=== PATIENT | female | born 1955 | race Caucasian/White ===

== ENCOUNTER 2016-07-22 14:49 | Emergency (ER) | payer OTHER ==
[~2016-07-22] VITALS: Wt 59.0 kg
[2016-07-22] MEDS ORDERED: PANTOPRAZOLE 40 MG INJ IV ONE (19:00)
[2016-07-22 19:17] LABS: ADD SCAN DIFF NO
--- NOTE | 2016-07-22 19:21 | RADRPT ---
PROCEDURE: XR Chest. CLINICAL INDICATION: Chest pain TECHNIQUE: A single portable view of the chest was obtained. COMPARISON: None FINDINGS: The cardiomediastinal silhouette is within normal limits. The lungs and pleural spaces are clear. The soft tissues and osseous structures are unremarkable. IMPRESSION: No acute cardiopulmonary disease. RPTAT: HPNM Physician Joanie Date Time Electronically viewed and signed by Yao Card Physician on 07/22/2016 19:21 /
[2016-07-22 19:22] LABS: BASOPHIL # 0.1 10^3/ul (0.0-0.1); BASOPHILS % 0.5 % (0.0-2.0); EOSINOPHILS # 0.2 10^3/ul (0.0-0.5); EOSINOPHILS % 2.1 % (0.0-7.0); HEMATOCRIT 45.3 % (37.0-47.0); HEMOGLOBIN 14.8 g/dl (12.0-16.0); LYMPHOCYTES # 3.8 10^3/ul (0.8-2.9); LYMPHOCYTES % 34.3 % (15.0-51.0); MEAN CORPUSCULAR HEMOGLOBIN 30.2 pg (29.0-33.0); MEAN CORPUSCULAR HGB CONC 32.7 g/dl (32.0-37.0); MEAN CORPUSCULAR VOLUME 92.4 fl (82.0-101.0); MEAN PLATELET VOLUME 12.2 fl (7.4-10.4); MONOCYTE # 0.6 10^3/ul (0.3-0.9); MONOCYTES % 5.8 % (0.0-11.0); NEUTROPHIL # 6.2 10^3/ul (1.6-7.5); NEUTROPHILS % 56.9 % (39.0-77.0); PLATELET COUNT 202 10^3/UL (140-415); RED CELL DISTRIBUTION WIDTH 12.9 % (11.5-14.5); WHITE BLOOD COUNT 10.9 10^3/ul (4.8-10.8)
[2016-07-22 19:31] LABS: ALBUMIN 4.5 g/dl (3.3-4.9); INR 0.88; PROTIME 11.9 Sec (12.2-14.2); PT RATIO 0.9
[2016-07-22 19:32] LABS: PARTIAL THROMBOPLASTIN TIME 22.4 Sec (25.0-35.0); POTASSIUM 4.9 mmol/L (3.5-5.1)
[2016-07-22 19:34] LABS: ALBUMIN/GLOBULIN RATIO 1.18; BILIRUBIN,INDIRECT 0.3 mg/dl (0-1.1); BILIRUBIN,TOTAL 0.3 mg/dl (0.2-1.3); CREATININE 0.47 mg/dl (0.44-1.00); TOTAL PROTEIN 8.3 g/dl (6.1-8.1)
[2016-07-22 19:35] LABS: CALCIUM 9.9 mg/dl (8.4-10.2)
[2016-07-22 19:46] LABS: TROPONIN-I 0.011 ng/ml (0.00-0.12)
--- NOTE | 2016-07-22 21:21 | RADRPT ---
PROCEDURE: US Abdomen. CLINICAL INDICATION: abdominal pain TECHNIQUE: Multiple real-time images were acquired of the patient's right upper quadrant abdomen a nd retroperitoneum utilizing a high resolution transducer. COMPARISON: None FINDINGS: The liver demonstrates normal echogenicity. The liver is normal in size and no focal solid lesions are seen. The liver measures 15 cm in length. The portal vein is patent with normal direction of lena w. No intrahepatic biliary dilatation is seen. No gallstones are identified within the gallbladder. There is no pericholecystic fluid or gallbladd er wall thickening. The common bile duct measures 3 mm in maximal dimension. The visualized portions of the pancreas are unremarkable. The tail of the pancreas is not seen. No free fluid is identified. The right kidney is normal in size, and demonstrate normal echogenicity and cortical thickness. The right kidney measures 9.2 cm in long dimension. There is no evidence of hydronephrosis. There are no kidney stones. RPTAT: AA IMPRESSION: Unremarkable right upper quadrant abdominal ultrasound. .Mykel Vidales MD, MD Date Time Electronically viewed and signed by .Mykel Vidales MD, on 07/22/2016 21:21 .S/
--- NOTE | 2016-07-22 22:05 | ERD ---
ER Documentation Chief Complaint Date/Time DATE: 07/22/16 TIME: 22:04 Chief Complaint CP WITH VOMITING AND MILD SOB SINCE 3 DAYS. NO DIAPHORESIS HPI 61-year-old female with history of insulin-dependent diabetes mellitus type 2 complaining of burning, moderate, nonradiating, epigastric and substernal chest pain intermittently since June 27 but continuously for the last 2 weeks. Pain seems to be worse at night and sometimes wakes her from sleep with shortness of breath and nausea but denies vomiting, hematemesis or hematochezia. Pain is not related to exertion or relieved by rest. Occasionally she feels worse after eating but symptoms resolved with vomiting. No leg pain or swelling. No URI symptoms or cough. No other relieving or exacerbating factors. No fevers or chills. She was evaluated at [facility] 1 week ago and diagnosed with gastritis. ROS All systems reviewed and are negative except as per history of present illness. Medications Home Meds Active Scripts Pantoprazole* (Protonix*) 40 Mg Tablet., 40 MG PO DAILY, #20 TAB Prov:YULISSA ROCHA MD 07/22/16 PMhx/Soc History of Surgery: No Anesthesia Reaction: No Hx Neurological Disorder: No Hx Respiratory Disorders: No Hx Cardiac Disorders: No Hx Psychiatric Problems: No Hx Miscellaneous Medical Probl: Yes (DM) Hx Alcohol Use: No Hx Substance Use: No Hx Tobacco Use: No Smoking Status: Never smoker FmHx Family history of diabetes but no coronary artery disease, stroke, cancer or sudden cardiac . Physical Exam Vitals Vital Signs Date Time Temp Pulse Resp B/P Pulse Ox O2 Delivery O2 Flow Rate FiO2 07/22/16 21:05 76 16 130/83 98 Room Air 07/22/16 14:51 98.6 112 21 148/70 98 Physical Exam Const: Alert, no acute distress Head: Atraumatic Eyes: Normal Conjunctiva ENT: Normal External Ears, Nose and Mouth. Neck: Full range of motion. Nontender. No JVD. Resp: Clear to auscultation bilaterally Cardio: Regular rate and rhythm, no murmurs. No chest wall tenderness. Abd: Soft, mild epigastric tenderness, non distended. Normal bowel sounds Skin: No petechiae or rashes Back: No midline or flank tenderness Ext: No cyanosis, or edema no calf swelling or tenderness. Pulses 4+ in all extremities. Neur: Awake and alert. No focal deficit observed. Psych: Normal Mood and Affect Result Diagram: 07/22/16185407/22/161854 Results 24 hrs Laboratory Tests Test 07/22/16 18:55 Activated Partial Thromboplast Time 22.4Sec Alanine Aminotransferase (ALT/SGPT) 16IU/L Albumin 4.5g/dl Albumin/Globulin Ratio 1.18 Alkaline Phosphatase 134IU/L Anion Gap 20 Aspartate Amino Transf (AST/SGOT) 42IU/L Basophils # 0.110^3/ul Basophils % 0.5% Blood Urea Nitrogen 17mg/dl Calcium Level 9.9mg/dl Carbon Dioxide Level 26mmol/L Chloride Level 101mmol/L Creatinine 0.47mg/dl Direct Bilirubin 0.00mg/dl Eosinophils # 0.210^3/ul Eosinophils % 2.1% Globulin 3.80g/dl Glucose Level 189mg/dl Hematocrit 45.3% Hemoglobin 14.8g/dl INR International Normalized Ratio 0.88 Indirect Bilirubin 0.3mg/dl Lipase 57U/L Lymphocytes # 3.810^3/ul Lymphocytes % 34.3% Mean Corpuscular Hemoglobin 30.2pg Mean Corpuscular Hemoglobin Concent 32.7g/dl Mean Corpuscular Volume 92.4fl Mean Platelet Volume 12.2fl Monocytes # 0.610^3/ul Monocytes % 5.8% Neutrophils # 6.210^3/ul Neutrophils % 56.9% Nucleated Red Blood Cells # 0.010^3/ul Nucleated Red Blood Cells % 0.0/100WBC Platelet Count 56679^3/UL Potassium Level 4.9mmol/L Prothrombin Time 11.9Sec Prothrombin Time Ratio 0.9 Red Blood Count 4.9010^6/ul Red Cell Distribution Width 12.9% Sodium Level 142mmol/L Total Bilirubin 0.3mg/dl Total Protein 8.3g/dl Troponin I 0.011ng/ml White Blood Count 10.910^3/ul Current Medications Medications (Trade) Dose Ordered Sig/Elly Route PRN Reason Start Time Stop Time Status Last Admin Dose Admin Pantoprazole (Protonix Iv) 40 mg ONCE ONCE IV 07/22/16 19:00 07/22/16 19:01 DC 07/22/16 19:36 EKG: TIME: 14:58. Sinus rhythm. Ventricular 105. Normal ID and QRS. Left axis deviation. Right ventricular conduction delay. Septal Q waves. No acute ST segment elevation or depression. EP Interpretation: Abnormal EKG. EKG: TIME: 22:53 Sinus rhythm. Ventricular 89. Normal ID and QRS. Left axis deviation. Right ventricular conduction delay. Septal Q waves. No acute ST segment elevation or depression. EP Interpretation: Abnormal EKG. IMAGING: ROCEDURE: XR Chest. CLINICAL INDICATION: Chest pain TECHNIQUE: A single portable view of the chest was obtained. COMPARISON: None FINDINGS: The cardiomediastinal silhouette is within normal limits. The lungs and pleural spaces are clear. The soft tissues and osseous structures are unremarkable. IMPRESSION: No acute cardiopulmonary disease. RPTAT: HPNM Physician Joanie Date Time Electronically viewed and signed by Physician Joanie on 07/22/2016 19 :21 / PROCEDURE: US Abdomen. CLINICAL INDICATION: abdominal pain TECHNIQUE: Multiple real-time images were acquired of the patient's right upper quadrant abdomen and retroperitoneum utilizing a high resolution transducer. COMPARISON: None FINDINGS: The liver demonstrates normal echogenicity. The liver is normal in size and no focal solid lesions are seen. The liver measures 15 cm in length. The portal vein is patent with normal direction of flow. No intrahepatic biliary dilatation is seen. No gallstones are identified within the gallbladder. There is no pericholecystic fluid or gallbladder wall thickening. The common bile duct measures 3 mm in maximal dimension. The visualized portions of the pancreas are unremarkable. The tail of the pancreas is not seen. No free fluid is identified. The right kidney is normal in size, and demonstrate normal echogenicity and cortical thickness. The right kidney measures 9.2 cm in long dimension. There is no evidence of hydronephrosis. There are no kidney stones. RPTAT: AA IMPRESSION: Unremarkable right upper quadrant abdominal ultrasound. .Mykel Vidales MD, MD Date Time Electronically viewed and signed by .Mykel Vidales MD, on 07/22/2016 21: 21 .S/ Procedures/MDM DOCUMENTS REVIEWED: ED nurse, prior ED, prior records REEXAMINATION/REEVALUATION: Time: 23:00. Doing well. Asymptomatic. MEDICAL DECISION MAKIN-year-old female with history of insulin-dependent diabetes mellitus type 2 complaining of burning, moderate, nonradiating, epigastric and substernal chest pain intermittently since June 27 but continuously for the last 2 weeks. No acute EKG ischemic changes are elevated troponin. Radiographic evidence of pneumonia or pneumothorax. Low risk for pulmonary embolism. No signs of aortic dissection. Possible gastritis/GERD although a cardiac etiology including ACS cannot be ruled out. EDWAR score of 1. Low risk for an acute event especially considering how long the pain has been ongoing. Stable for discharge with precautionary instructions and urgent outpatient follow-up within 48-72 hours for further risk stratification. Counseled patient regarding diagnostic workup, diagnosis and need for followup. Understands to return to ED if symptoms recur, worsen or any other concerns. Departure Diagnosis: Primary Impression: Chest pain of unknown etiology Additional Impression: Diabetes mellitus type 2 in nonobese Condition: YULISSA Pichardo MD Jul 22, 2016 22:05
[2016-07-22] MEDS ORDERED: PANT40TA3 PO (22:39)
[2016-07-22 23:58] VITALS: BP 150/100; PULSE 91; RESP 16
== END 2016-07-22 23:59 | disposition home or self-care (01) ==
LOC: E/R 14:49
DX: R07.2 Precordial pain (principal); E11.9 Type 2 diabetes mellitus without complications; R10.9 Unspecified abdominal pain; Z79.4 Long term (current) use of insulin
CPT/HCPCS: 36415; 71010; 76705; 80053; 83690; 84484; 85025; 85610; 85730; 93005; 96374; Z7502

== ENCOUNTER 2016-09-11 07:07 | Inpatient (IN) | payer OTHER ==
[~2016-09-11] VITALS: Ht 160 cm; Wt 62.9 kg
[~2016-09-11 07:07] MED LIST: PANT40TA3 PO
[2016-09-11] MEDS ORDERED: CEFTRIAXONE 1 GM/50 ML (PMX) 50 ML IVPB STA (07:22)
[2016-09-11] MEDS ORDERED: SODIUM CHLORIDE 0.9% 1L BAG IV* STA (07:22)
[2016-09-11] MEDS ORDERED: KETOROLAC 15 MG INJ IV STA (07:30)
[2016-09-11] MEDS ORDERED: SS SC (08:03)
[2016-09-11] MEDS: AZITHROMYCIN 500MG/NS (PMX) 250 ML IV STA ×2 (08:14→08:51)
[2016-09-11 08:16] LABS: ADD SCAN DIFF NO
[2016-09-11 08:31] LABS: BASOPHIL # 0.1 10^3/ul (0.0-0.1); BASOPHILS % 0.3 % (0.0-2.0); CHLORIDE 98 mmol/L (97-110); EOSINOPHILS % 0.1 % (0.0-7.0); HEMATOCRIT 38.8 % (37.0-47.0); HEMOGLOBIN 13.5 g/dl (12.0-16.0); LYMPHOCYTES # 1.1 10^3/ul (0.8-2.9); LYMPHOCYTES % 6.2 % (15.0-51.0); MEAN CORPUSCULAR HEMOGLOBIN 31.3 pg (29.0-33.0); MEAN CORPUSCULAR HGB CONC 34.8 g/dl (32.0-37.0); MEAN PLATELET VOLUME 10.5 fl (7.4-10.4); MONOCYTES % 5.5 % (0.0-11.0); NEUTROPHIL # 15.9 10^3/ul (1.6-7.5); NEUTROPHILS % 87.4 % (39.0-77.0); PLATELET COUNT 245 10^3/UL (140-415); RED BLOOD COUNT 4.31 10^6/ul (4.20-5.40); RED CELL DISTRIBUTION WIDTH 12.1 % (11.5-14.5); SODIUM 136 mmol/L (135-144); WHITE BLOOD COUNT 18.2 10^3/ul (4.8-10.8)
[2016-09-11 08:32] LABS: POTASSIUM 3.7 mmol/L (3.5-5.1)
[2016-09-11 08:33] LABS: CREATININE 0.56 mg/dl (0.44-1.00)
[2016-09-11 08:34] LABS: ALANINE AMINOTRANSFERASE 20 IU/L (13-69); ALKALINE PHOSPHATASE 116 IU/L (42-121); ANION GAP 18 (8-16); ASPARTATE AMINO TRANSFERASE 31 IU/L (15-46); BILIRUBIN,INDIRECT 1.3 mg/dl (0-1.1); BILIRUBIN,TOTAL 1.3 mg/dl (0.2-1.3); BLOOD UREA NITROGEN 10 mg/dl (7-20); CARBON DIOXIDE 24 mmol/L (21-31); GLUCOSE 299 mg/dl (70-220); INR 1.07; PARTIAL THROMBOPLASTIN TIME 30.9 Sec (25.0-35.0); PROTIME 13.9 Sec (12.2-14.2); PT RATIO 1.1
[2016-09-11 08:46] LABS: TROPONIN-I < 0.012 ng/ml (0.00-0.12)
--- NOTE | 2016-09-11 09:13 | RADRPT ---
PROCEDURE: XR Chest. CLINICAL INDICATION: Sepsis TECHNIQUE: Single frontal chest x-ray. COMPARISON: 07/17/2016 FINDINGS: No acute infiltrate, pleural effusion or pneumothorax is identified. Cardiomediastinal silhouette i s within normal limits. The osseous structures are unremarkable. IMPRESSION: 1. No evidence of acute cardiopulmonary process. RPTAT: EE .Bernabe Flowers MD, MD Date Time Electronically viewed and signed by .Bernabe Flowers MD, on 09/11/2016 09:13 .R/
[2016-09-11 10:14] LABS: ADD UMIC YES; URINE BILIRUBIN (Dip) NEGATIVE (NEGATIVE); URINE BLOOD (Dip) NEGATIVE (NEGATIVE); URINE COLOR LT. YELLOW (YELLOW); URINE KETONES (Dip) 40 (NEGATIVE); URINE LEUKOCYTE ESTERASE (Dip) NEGATIVE (NEGATIVE); URINE NITRITE (Dip) NEGATIVE (NEGATIVE); URINE TOTAL PROTEIN (Dip) TRACE (NEGATIVE); URINE UROBILINOGEN (Dip) 0.2 E.U./dL (0.1-1.0)
[2016-09-11 10:23] LABS: URINE RBCS 0-2 /HPF (0)
[2016-09-11] MEDS ORDERED: ACETAMINOPHEN 325 MG TAB PO PRN ×2 (11:00→17:30)
[2016-09-11] MEDS ORDERED: ONDANSETRON 4 MG INJ IV PRN (11:00)
[2016-09-11 11:14] VITALS: TEMP 99
--- NOTE | 2016-09-11 13:42 | ERA ---
ER Documentation Chief Complaint Date/Time DATE: 09/11/16 TIME: 13:34 Chief Complaint DIZZINESS FEVER AND FLULIKE SYMPTOMS FOR 3 DAYS. NO NEURO DEFICIT NOTED HPI 61-year-old female presenting with 3 days of flulike symptoms, with associated left ear pain and dizziness. She also has associated fevers and productive cough. She denies any vision disturbance, nausea, vomiting, diarrhea, chest pain, or shortness of breath. No associated abdominal pain or dysuria. She complains of decreased hearing in her left ear. No neck stiffness or neck pain. ROS All systems reviewed and are negative except as per history of present illness. Medications Home Meds Reported Medications Insulin Human Regular (Novolin-R U-100) 100 Unit/Ml Soln, 15 UNITS SC BID, EA 09/11/16 Discontinued Scripts Pantoprazole* (Protonix*) 40 Mg Tablet.dr, 40 MG PO DAILY, #20 TAB Prov:YULISSA ROCHA MD 07/22/16 Allergies Allergies: Coded Allergies: Penicillins (Verified Allergy, Unknown, RASH STOMACH ACHE, 09/11/16) PMhx/Soc History of Surgery: No Anesthesia Reaction: No Hx Neurological Disorder: No Hx Respiratory Disorders: No Hx Cardiac Disorders: No Hx Psychiatric Problems: No Hx Miscellaneous Medical Probl: Yes (DM) Hx Alcohol Use: No Hx Substance Use: No Hx Tobacco Use: No Smoking Status: Never smoker FmHx Family History: diabetes Physical Exam Vitals Vital Signs Date Time Temp Pulse Resp B/P Pulse Ox O2 Delivery O2 Flow Rate FiO2 09/11/16 11:14 99.0 100 20 123/77 100 Room Air 09/11/16 09:01 110 22 144/90 95 Room Air 09/11/16 07:11 100.5 135 20 110/84 98 Physical Exam Const: Ill-appearing, nontoxic, mild distress Head: Atraumatic Eyes: Normal Conjunctiva ENT: Left TM bulging with purulence behind TM and erythema. External canal normal. Right ear normal. Posterior oropharynx normal without exudate, swelling or erythema. Neck: Full range of motion. No JVD. No meningismus. Resp: Clear to auscultation bilaterally Cardio: Tachycardic with regular rhythm, no murmurs Abd: Soft, non tender, non distended. Normal bowel sounds Skin: No petechiae or rashes Back: No midline or flank tenderness Ext: No cyanosis, or edema Neur: Awake and alert and oriented 3, cranial nerves intact, strength and sensations intact, able to walk but careful gait due to dizziness Psych: Normal Mood and Affect Result Diagram: 09/11/16 0745 09/11/16 0745 Results 24 hrs Laboratory Tests Test 09/11/16 07:40 09/11/16 07:45 09/11/16 09:40 09/11/16 10:19 Bedside Glucose 272mg/dL White Blood Count 18.210^3/ul Red Blood Count 4.3110^6/ul Hemoglobin 13.5g/dl Hematocrit 38.8% Mean Corpuscular Volume 90.0fl Mean Corpuscular Hemoglobin 31.3pg Mean Corpuscular Hemoglobin Concent 34.8g/dl Red Cell Distribution Width 12.1% Platelet Count 89769^3/UL Mean Platelet Volume 10.5fl Neutrophils % 87.4% Lymphocytes % 6.2% Monocytes % 5.5% Eosinophils % 0.1% Basophils % 0.3% Nucleated Red Blood Cells % 0.0/100WBC Neutrophils # 15.910^3/ul Lymphocytes # 1.110^3/ul Monocytes # 1.010^3/ul Eosinophils # 0.010^3/ul Basophils # 0.110^3/ul Nucleated Red Blood Cells # 0.010^3/ul Prothrombin Time 13.9Sec Prothrombin Time Ratio 1.1 INR International Normalized Ratio 1.07 Activated Partial Thromboplast Time 30.9Sec Sodium Level 136mmol/L Potassium Level 3.7mmol/L Chloride Level 98mmol/L Carbon Dioxide Level 24mmol/L Anion Gap 18 Blood Urea Nitrogen 10mg/dl Creatinine 0.56mg/dl Glucose Level 299mg/dl Lactic Acid Level 1.7mmol/L 1.4mmol/L Calcium Level 9.0mg/dl Total Bilirubin 1.3mg/dl Direct Bilirubin 0.00mg/dl Indirect Bilirubin 1.3mg/dl Aspartate Amino Transf (AST/SGOT) 31IU/L Alanine Aminotransferase (ALT/SGPT) 20IU/L Alkaline Phosphatase 116IU/L Troponin I < 0.012ng/ml Total Protein 8.0g/dl Albumin 4.0g/dl Globulin 4.00g/dl Albumin/Globulin Ratio 1.00 Lipase 40U/L Urine Color LT. YELLOW Urine Clarity CLEAR Urine pH 7.5 Urine Specific [place] 1.015 Urine Ketones 40 Urine Nitrite NEGATIVE Urine Bilirubin NEGATIVE Urine Urobilinogen 0.2 E.U./dL Urine Leukocyte Esterase NEGATIVE Urine Microscopic RBC 0-2/HPF Urine Microscopic WBC NONE SEEN/HPF Urine Epithelial Cells RARE Urine Hemoglobin NEGATIVE Urine Glucose 0.25%% Urine Total Protein TRACE Current Medications Medications (Trade) Dose Ordered Sig/Elly Route PRN Reason Start Time Stop Time Status Last Admin Dose Admin Sodium Chloride 1950 ml 1,950 ml BOLUS OVER 2 HOURS STAT IV* 09/11/16 07:22 09/11/16 07:31 DC 09/11/16 08:13 Ceftriaxone Sodium 50 ml @ 100 mls/hr ONCE STAT IVPB 09/11/16 07:22 09/11/16 07:51 DC 09/11/16 08:13 Azithromycin (Zithromax 500mg/ NS (Pmx)) 250 ml @ 250 mls/hr ONCE STAT IV 09/11/16 07:22 09/11/16 08:21 DC 09/11/16 08:51 Ketorolac Tromethamine (Toradol) 15 mg ONCE STAT IV 09/11/16 07:30 09/11/16 07:31 DC 09/11/16 08:14 Ondansetron HCl (Zofran Inj) 4 mg BRIDGE ORDER PRN IV NAUSEA AND/OR VOMITING 09/11/16 11:00 09/12/16 10:59 Acetaminophen (Tylenol Tab) 650 mg ER BRIDGE PRN PO MILD PAIN/FEVER 09/11/16 11:00 09/12/16 10:59 Procedures/MDM EMERGENT LABS AND DIAGNOSTIC STUDIES: Lab Results above were reviewed and interpreted by me. CBC shows leukocytosis of 18 BMP shows hyperglycemia Trop normal UA without evidence of UTI Lactate normal 12-lead EKG was interpreted by Adrian Deshpande MD: Normal Sinus Rhythm with ventricular rate of 123 beats per minute Left anterior fascicular block Normal intervals No acute ST or T wave changes suggestive of acute ischemia or STEMI. Radiology Results as interpreted by Radiology below were reviewed by Shonda Deshpande MD: Chest x-ray: No evidence of acute cardiopulmonary process Initial Nursing notes reviewed. Previous Medical Records requested via the Electronic Health Record. EMERGENCY DEPARTMENT COURSE / MEDICAL DECISION MAKING: Patient is presenting with evidence of sepsis. She does have flulike symptoms but her flu test is negative. Given her tachycardia, at 30 cc/kg bolus was given with improvement in her vital signs. However her dizziness did not improve. She continues to feel very weak. Her only source of infection right now is an upper respiratory infection with otitis media. I have a very low suspicion for ACS, aortic dissection, meningitis, intracranial abscess, stroke. Chest x-ray does not show evidence of pneumonia. Patient's infectious symptoms have not stabilized and the patient is at risk of decompensation. The patient will be admitted for careful hydration, antibiotic therapy, and infectious source control. Severe Sepsis Assessment: Infectious Source: Left otitis media, upper respiratory infection End organ damage indicated by: Tachycardia Severe Sepsis Managment: Blood Cultures X 2 before broad spectrum antibiotics initiated within 3 hours of recognition. 30 ml/kg NS bolus Completed Initial Lactate: Within normal limits Repeat Lactate normal Critical Care: Time: 35 minutes Treatments/Evaluations: Emergent fluid management, while maintaining close respiratory support. Immediate broad spectrum antibiotic therapy. Simultaneous assessment for possible sources in order to direct therapy. Consideration for invasive and chemical support to prevent respiratory or cardiac collapse. Accepting Care Team: Current data and ongoing care discussed. Time: Time of admission Primary Provider: Ena Consulting: none Outstanding Data: none Departure Diagnosis: Primary Impression: Dizziness Additional Impressions: Sepsis Qualified Code: A41.9 - Sepsis, due to unspecified organism Otitis media, left Qualified Code: H66.002 - Acute suppurative otitis media of left ear without spontaneous rupture of tympanic membrane, recurrence not specified Flu-like symptoms Condition: Serious TAMY DESHPANDE MD Sep 11, 2016 13:42
[2016-09-11 15:30] VITALS: BP 136/72; PULSE 97; RESP 20
[2016-09-11 15:44] VITALS: Ht 160 cm; Wt 62.9 kg
[2016-09-11] MEDS ORDERED: GLUCAGON 1 MG INJ IM PRN (17:30)
[2016-09-11] MEDS ORDERED: GLUCOSE GEL 15 GRAM TUBE PO PRN ×2 (17:30)
[2016-09-11] MEDS ORDERED: IBUPROFEN 600 MG TAB PO PRN (17:30)
[2016-09-11] MEDS ORDERED: DEXTROSE 50% 50 ML SYRINGE IV PRN ×2 (17:30)
[2016-09-11] MEDS ORDERED: GLUCOSE GEL 15 GRAM TUBE BUCCAL PRN (17:30)
[2016-09-11] MEDS: LEVALBUTEROL (NEB) 0.63 MG/3 ML AMP HHN SCH (17:54)
--- NOTE | 2016-09-11 18:04 | HP ---
DATE OF ADMISSION: 09/11/2016 CHIEF COMPLAINT: Cough, chest congestion and left ear pain. HISTORY OF PRESENT ILLNESS: The patient is a 61-year-old female with history of diabetes and takes Humulin 70/30, 15 units twice a day and came to ER with 3 days' history of cough, fever and chills, chest congestion and left ear pain. The patient was seen in the ER. Patient was also complaining o f mild dizziness. The patient reported that she has yellow productive cough. No reported hemoptysi s. No reported vomiting or diarrhea. No history of dysuria or hematuria. No history of shortness of breath or chest pain, no history of skin rash. No history of abdominal pannus. is unremar kable. Patient was seen in the ER, was noted to have white count of 18.2 with 87% neutrophils. Blo od sugar was 299. Lactic acid was normal. Left ear examination done by ER physician revealed otiti s media. The patient received IV ceftriaxone and Zithromax and is being admitted for further evalua tion and management. Chest x-ray was unremarkable. PAST SURGICAL HISTORY: None. ALLERGIES: PENICILLIN CAUSES RASH, ASPIRIN CAUSES SHORTNESS OF BREATH. SOCIAL HISTORY: No smoking, no alcohol. FAMILY HISTORY: Noncontributory. MEDICATIONS PRIOR TO ADMISSION: Humulin 70/30, 15 twice a day. PHYSICAL EXAMINATION: GENERAL: The patient is conscious, awake, alert. VITAL SIGNS: T-maximum 100.5, current temperature 99.1, pulse 97, respirations 20, blood pressure 1 36/72, O2 saturation 97% on room air. HEENT: Conjunctivae and lids normal. Oropharynx clear. NECK: Supple. No mass, no thyromegaly. CHEST: Fairly clear. No use of accessory muscles. CARDIOVASCULAR: S1, S2 normal. No murmur. ABDOMEN: Soft and nontender. Bowel sounds present. EXTREMITIES: No leg edema. NEUROLOGIC: The patient is awake, alert, fairly oriented with no gross focal deficit. IMPRESSION: 1. Acute bronchitis. 2. Left otitis media. 3. Diabetes mellitus. PLAN: Patient admitted on medical floor. Patient will be started on diabetic diet and will be star mu on IV Levaquin. Blood culture, influenza screen has been sent in the ER. We will also obtain s putum culture will also give breathing treatment and Lovenox for DVT prophylaxis and symptomatic compa atment and will put patient on Lantus premeal insulin and sliding scale coverage. We will also give IV fluid. Dictated By: JOSSE ZHENG/ISA Conf#: [id number] DID#: [id number]
[2016-09-11] MEDS: SOD CHLORIDE 0.45% 1,000 ML IV SCH (18:26)
[2016-09-11] MEDS: LEVOFLOXACIN 500MG/D5W (PMX) 100 ML IVPB SCH (18:26)
[2016-09-11] MEDS: ENOXAPARIN 40 MG/0.4 ML SYG SC SCH (18:42)
[2016-09-11] MEDS: INSULIN ASPART [NOVOLOG] 3 ML PEN SC SCH ×3 (18:46→20:33)
[2016-09-11 19:47] VITALS: BP 120/64; RESP 20
[2016-09-11] MEDS: NEOMYC/POLYMYX/HC 10 ML OTIC SUSP LEFT EAR SCH (20:31)
[2016-09-12] MEDS: LEVALBUTEROL (NEB) 0.63 MG/3 ML AMP HHN SCH ×3 (00:46→16:26)
[2016-09-12] MEDS: ACCU-CHEK XX SCH (02:30)
[2016-09-12 05:55] LABS: ADD SCAN DIFF NO
[2016-09-12] MEDS: SOD CHLORIDE 0.45% 1,000 ML IV SCH ×2 (06:08→10:16)
[2016-09-12 06:18] LABS: BASOPHIL # 0.1 10^3/ul (0.0-0.1); BASOPHILS % 0.5 % (0.0-2.0); EOSINOPHILS # 0.1 10^3/ul (0.0-0.5); EOSINOPHILS % 1.1 % (0.0-7.0); HEMATOCRIT 33.8 % (37.0-47.0); HEMOGLOBIN 11.1 g/dl (12.0-16.0); LYMPHOCYTES # 2.8 10^3/ul (0.8-2.9); LYMPHOCYTES % 23.6 % (15.0-51.0); MEAN CORPUSCULAR HGB CONC 32.8 g/dl (32.0-37.0); MEAN CORPUSCULAR VOLUME 94.4 fl (82.0-101.0); MEAN PLATELET VOLUME 10.4 fl (7.4-10.4); MONOCYTE # 0.8 10^3/ul (0.3-0.9); MONOCYTES % 6.2 % (0.0-11.0); NEUTROPHIL # 8.2 10^3/ul (1.6-7.5); PLATELET COUNT 199 10^3/UL (140-415); RED BLOOD COUNT 3.58 10^6/ul (4.20-5.40); RED CELL DISTRIBUTION WIDTH 12.5 % (11.5-14.5); WHITE BLOOD COUNT 12.1 10^3/ul (4.8-10.8)
[2016-09-12 06:41] LABS: CALCIUM 8.3 mg/dl (8.4-10.2); CREATININE 0.57 mg/dl (0.44-1.00)
[2016-09-12] MEDS: INSULIN ASPART [NOVOLOG] 3 ML PEN SC SCH ×7 (07:46→20:27)
[2016-09-12 08:00] VITALS: BP 122/69; RESP 22
[2016-09-12] MEDS ORDERED: INSULIN GLARGINE [LANtus] 3 ML PEN SC SCH (08:00)
[2016-09-12] MEDS: NEOMYC/POLYMYX/HC 10 ML OTIC SUSP LEFT EAR SCH ×3 (09:21→20:26)
[2016-09-12] MEDS: ENOXAPARIN 40 MG/0.4 ML SYG SC SCH (09:35)
--- NOTE | 2016-09-12 12:58 | PN ---
Date/Time of Note Date/Time of Note DATE: 09/12/16 TIME: 12:53 Assessment/Plan VTE Prophylaxis VTE Prophylaxis Intervention: LMWH Lines/Catheters IV Catheter Type (from Nrs): Peripheral IV Assessment/Plan Assessment/Plan - Acute bronchitis. CXR - wnl - Levaquin. - sputum culture-pending - breathing treatment - Blood culture- no growth yet - influenza screen- negative - Left otitis media. -Cipro otic drops - Diabetes mellitus. - Glycemic control - ADA diet -adult educator consult -Dietary consult -Hemoglobin A1c in the morning -Allergic to Lantus. -Stop Lantus and will keep the patient on NovoLog insulin- before meals meals and sliding scale as well - Lovenox for DVT prophylaxis Subjective 24 Hr Interval Summary Constitutional: improved Eyes: no complaints ENT: no complaints Respiratory: no complaints Cardiovascular: no complaints Gastrointestinal: no complaints Genitourinary: no complaints Musculoskeletal: no complaints Skin: no complaints Neurologic: no complaints Exam/Review of Systems Vital Signs Vitals Vital Signs Date Time Temp Pulse Resp B/P Pulse Ox O2 Delivery O2 Flow Rate FiO2 09/12/16 08:54 94 20 97 21 09/12/16 08:00 98.8 122/69 09/11/16 15:30 Room Air Intake and Output 09/11/16 09/11/16 09/12/16 15:00 23:00 07:00 Intake Total 2250 ml 100 ml 1140 ml Balance 2250 ml 100 ml 1140 ml Exam Constitutional: alert, oriented, well developed Psych: nl mood/affect Head: atraumatic Eyes: EOMI ENMT: nl external ears & nose Neck: non-tender Respiratory: clear to auscultation Cardiovascular: nl pulses Gastrointestinal: non-tender, soft Musculoskeletal: nl extremities to inspection Extremities: normal pulses Neurological: nl mental status, nl speech Skin: nl turgor Lymph: nl lymph nodes Results Result Diagram: 09/12/16 0528 09/12/1628 Results 24 hrs Laboratory Tests Test 09/11/16 13:20 09/11/16 16:55 09/11/16 18:44 09/11/16 20:30 Lactic Acid Level 2.2 Bedside Glucose 166 217 198 Test 09/12/16 02:23 09/12/16 05:28 09/12/16 07:32 09/12/16 12:13 Bedside Glucose 150 169 269 H White Blood Count 12.1 #H Red Blood Count 3.58 L Hemoglobin 11.1 L Hematocrit 33.8 L Mean Corpuscular Volume 94.4 Mean Corpuscular Hemoglobin 31.0 Mean Corpuscular Hemoglobin Concent 32.8 Red Cell Distribution Width 12.5 Platelet Count 199 Mean Platelet Volume 10.4 Neutrophils % 68.0 Lymphocytes % 23.6 Monocytes % 6.2 Eosinophils % 1.1 Basophils % 0.5 Nucleated Red Blood Cells % 0.0 Neutrophils # 8.2 H Lymphocytes # 2.8 Monocytes # 0.8 Eosinophils # 0.1 Basophils # 0.1 Nucleated Red Blood Cells # 0.0 Sodium Level 140 Potassium Level 4.0 Chloride Level 105 Carbon Dioxide Level 28 Anion Gap 11 # Blood Urea Nitrogen 8 Creatinine 0.57 Glucose Level 172 # Hemoglobin A1c 7.9 H Calcium Level 8.3 L Medications Medications Current Medications Levofloxacin/ Dextrose (Levaquin 500mg/ D5W 100 ml (Pmx)) 100 ml @ 100 mls/hr Q24H IVPB Last administered on 09/11/16 18:26; Admin Dose 100 MLS/HR; Start at 17:30 Acetaminophen (Tylenol Tab) 650 mg Q4H PRN PO PAIN AND OR ELEVATED TEMP Last administered on 09/11/16 20:35; Admin Dose 650 MG; Start 09/11/16 at 17:30 Ibuprofen 600 mg 600 mg Q6 PRN PO FEVER, pain; Start 09/11/16 at 17:30 Sodium Chloride (1/2 NS) 1,000 ml @ 75 mls/hr [id number] IV Last administered on 09/12/16 10:16; Admin Dose 75 MLS/HR; Start 09/11/16 at 17:30 Enoxaparin Sodium (Lovenox) 40 mg DAILY SC Last administered on 09/12/16 09:35 ; Admin Dose 40 MG; Start 09/11/16 at 17:30 Neomycin/ Polymyxin/ Hydrocortisone (Cortisporin Otic Susp) 4 drop TID LEFT EAR Last administered on 09/12/16 09:21; Admin Dose 4 DROP; Start 09/11/16 at 21: 00 Insulin Glargine (Lantus) 15 unit DAILY@08 SC ; Start 09/12/16 at 08:00 Diagnostic Test (Pha) (Accu-Chek) 1 ea 02 XX Last administered on 09/12/16t 02: 30; Admin Dose 1 EA; Start 09/12/16 at 02:00 Miscellaneous Information 1 ea NOTE XX ; Start 09/11/16 at 17:30 Glucose (Glutose) 15 gm Q15M PRN PO DECREASED GLUCOSE; Start 09/11/16 at 17:30 Glucose (Glutose) 22.5 gm Q15M PRN PO DECREASED GLUCOSE; Start 09/11/16 at 17: 30 Dextrose (D50w Syringe) 25 ml Q15M PRN IV DECREASED GLUCOSE; Start 09/11/16 at 17:30 Dextrose (D50w Syringe) 50 ml Q15M PRN IV DECREASED GLUCOSE; Start 09/11/16 at 17:30 Glucagon (Glucagen) 1 mg Q15M PRN IM DECREASED GLUCOSE; Start 09/11/16 at 17:30 Glucose (Glutose) 15 gm Q15M PRN BUCCAL DECREASED GLUCOSE; Start 09/11/16 at 17 :30 JULIOCESAR JOSHUA Sep 12, 2016 12:58
[2016-09-12] MEDS: LEVOFLOXACIN 500MG/D5W (PMX) 100 ML IVPB SCH (17:17)
[2016-09-12 19:57] VITALS: BP 143/79; RESP 18
[2016-09-13] MEDS: LEVALBUTEROL (NEB) 0.63 MG/3 ML AMP HHN SCH ×4 (00:36→23:18)
[2016-09-13] MEDS: ACCU-CHEK XX SCH (02:00)
[2016-09-13 06:06] LABS: ADD SCAN DIFF NO
[2016-09-13 06:31] LABS: BASOPHIL # 0.1 10^3/ul (0.0-0.1); BASOPHILS % 0.8 % (0.0-2.0); EOSINOPHILS # 0.3 10^3/ul (0.0-0.5); EOSINOPHILS % 2.8 % (0.0-7.0); HEMATOCRIT 38.7 % (37.0-47.0); HEMOGLOBIN 12.8 g/dl (12.0-16.0); LYMPHOCYTES # 3.1 10^3/ul (0.8-2.9); LYMPHOCYTES % 34.5 % (15.0-51.0); MEAN CORPUSCULAR HEMOGLOBIN 30.3 pg (29.0-33.0); MEAN CORPUSCULAR HGB CONC 33.1 g/dl (32.0-37.0); MEAN CORPUSCULAR VOLUME 91.7 fl (82.0-101.0); MEAN PLATELET VOLUME 10.1 fl (7.4-10.4); MONOCYTE # 0.6 10^3/ul (0.3-0.9); MONOCYTES % 7.2 % (0.0-11.0); NEUTROPHIL # 4.8 10^3/ul (1.6-7.5); NEUTROPHILS % 54.1 % (39.0-77.0); PLATELET COUNT 294 10^3/UL (140-415); RED BLOOD COUNT 4.22 10^6/ul (4.20-5.40); RED CELL DISTRIBUTION WIDTH 12.4 % (11.5-14.5); WHITE BLOOD COUNT 8.9 10^3/ul (4.8-10.8)
[2016-09-13 06:53] LABS: CALCIUM 9.3 mg/dl (8.4-10.2); CREATININE 0.54 mg/dl (0.44-1.00); POTASSIUM 4.2 mmol/L (3.5-5.1)
[2016-09-13 07:39] VITALS: BP 130/73; RESP 18
[2016-09-13] MEDS: INSULIN ASPART [NOVOLOG] 3 ML PEN SC SCH ×7 (07:57→20:36)
[2016-09-13] MEDS: ENOXAPARIN 40 MG/0.4 ML SYG SC SCH (09:00)
[2016-09-13] MEDS: NEOMYC/POLYMYX/HC 10 ML OTIC SUSP LEFT EAR SCH ×3 (09:00→20:36)
[2016-09-13] MEDS: SOD CHLORIDE 0.45% 1,000 ML IV SCH ×2 (09:30→15:12)
[2016-09-13] MEDS: LEVOFLOXACIN 500MG/D5W (PMX) 100 ML IVPB SCH (17:29)
--- NOTE | 2016-09-13 17:36 | PN ---
Date/Time of Note Date/Time of Note DATE: 09/13/16 TIME: 17:29 Assessment/Plan VTE Prophylaxis VTE Prophylaxis Intervention: SCD's Lines/Catheters IV Catheter Type (from Nrs): Peripheral IV Assessment/Plan Chief Complaint/Hosp Course Assessment/Plan - Acute bronchitis. Continue Levaquin - Left otitis media. Continue Cortisporin eardrops. - Diabetes mellitus. Hemoglobin A1c 7.9. Continue NovoLog, according to patient patient is allergic to Lantus. Further recommendations based on clinical course. Plan of care discussed with Dr. Garcia. Problems: Subjective 24 Hr Interval Summary Free Text/Dictation Patient complains of the left ear pain, complaints of generalized back pain, denies shortness of breath, denies nausea vomiting. Patient stated some improvement in cough however is still has productive cough. Exam/Review of Systems Vital Signs Vitals Vital Signs Date Time Temp Pulse Resp B/P Pulse Ox O2 Delivery O2 Flow Rate FiO2 09/13/16 15:40 108 15 98 21 09/13/16 07:39 98.4 130/73 09/11/16 15:30 Room Air Intake and Output 09/12/16 09/12/16 09/13/16 15:00 23:00 07:00 Intake Total 150 ml 2160 ml 240 ml Balance 150 ml 2160 ml 240 ml Exam Constitutional: alert, oriented Psych: no complaints Head: atraumatic, normocephalic Eyes: nl conjunctiva Neck: non-tender, supple Respiratory: clear to auscultation, normal air movement Cardiovascular: nl pulses, regular rate and rhythm Gastrointestinal: non-tender, soft Extremities: normal pulses Neurological: BIO[employer]FORMAT[employer] SUPPORT SPECIALIST II-XII intact Results Result Diagram: 09/13/16 0540 09/13/16 0532 Results 24 hrs Laboratory Tests Test 09/12/16 20:24 09/13/16 02:45 09/13/16 05:32 09/13/16 05:40 Bedside Glucose 199 168 Sodium Level 138 Potassium Level 4.2 Chloride Level 104 Carbon Dioxide Level 27 Anion Gap 11 Blood Urea Nitrogen 10 Creatinine 0.54 Glucose Level 199 Calcium Level 9.3 White Blood Count 8.9 # Red Blood Count 4.22 Hemoglobin 12.8 Hematocrit 38.7 Mean Corpuscular Volume 91.7 Mean Corpuscular Hemoglobin 30.3 Mean Corpuscular Hemoglobin Concent 33.1 Red Cell Distribution Width 12.4 Platelet Count 294 # Mean Platelet Volume 10.1 Neutrophils % 54.1 Lymphocytes % 34.5 Monocytes % 7.2 Eosinophils % 2.8 Basophils % 0.8 Nucleated Red Blood Cells % 0.0 Neutrophils # 4.8 Lymphocytes # 3.1 H Monocytes # 0.6 Eosinophils # 0.3 Basophils # 0.1 Nucleated Red Blood Cells # 0.0 Hemoglobin A1c 7.9 H Test 09/13/16 07:51 09/13/16 11:48 09/13/16 17:20 Bedside Glucose 199 218 129 Medications Medications Current Medications Levofloxacin/ Dextrose (Levaquin 500mg/ D5W 100 ml (Pmx)) 100 ml @ 100 mls/hr Q24H IVPB Last administered on 09/13/16 17:29; Admin Dose 100 MLS/HR; Start at 17:30 Acetaminophen (Tylenol Tab) 650 mg Q4H PRN PO PAIN AND OR ELEVATED TEMP Last administered on 09/11/16 20:35; Admin Dose 650 MG; Start 09/11/16 at 17:30 Ibuprofen 600 mg 600 mg Q6 PRN PO FEVER, pain Last administered on 09/13/16 15 :09; Admin Dose 600 MG; Start 09/11/16 at 17:30 Sodium Chloride (1/2 NS) 1,000 ml @ 75 mls/hr [id number] IV Last administered on 09/13/16 15:12; Admin Dose 75 MLS/HR; Start 09/11/16 at 17:30 Enoxaparin Sodium (Lovenox) 40 mg DAILY SC Last administered on 09/13/16 09:00 ; Admin Dose 40 MG; Start 09/11/16 at 17:30 Neomycin/ Polymyxin/ Hydrocortisone (Cortisporin Otic Susp) 4 drop TID LEFT EAR Last administered on 09/13/16 15:06; Admin Dose 4 DROP; Start 09/11/16 at 21: 00 Diagnostic Test (Pha) (Accu-Chek) 1 ea 02 XX Last administered on 09/13/16 02: 00; Admin Dose 1 EA; Start 09/12/16 at 02:00 Miscellaneous Information 1 ea NOTE XX ; Start 09/11/16 at 17:30 Glucose (Glutose) 15 gm Q15M PRN PO DECREASED GLUCOSE; Start 09/11/16 at 17:30 Glucose (Glutose) 22.5 gm Q15M PRN PO DECREASED GLUCOSE; Start 09/11/16 at 17: 30 Dextrose (D50w Syringe) 25 ml Q15M PRN IV DECREASED GLUCOSE; Start 09/11/16 at 17:30 Dextrose (D50w Syringe) 50 ml Q15M PRN IV DECREASED GLUCOSE; Start 09/11/16 at 17:30 Glucagon (Glucagen) 1 mg Q15M PRN IM DECREASED GLUCOSE; Start 09/11/16 at 17:30 Glucose (Glutose) 15 gm Q15M PRN BUCCAL DECREASED GLUCOSE; Start 09/11/16 at 17 :30 KATE MCNEAL Sep 13, 2016 17:36
[2016-09-13] MEDS ORDERED: morphine 10 MG INJ IM PRN (18:00)
[2016-09-13 20:03] VITALS: BP 131/71; RESP 18
[2016-09-14] MEDS: ACCU-CHEK XX SCH (01:04)
[2016-09-14] MEDS: SOD CHLORIDE 0.45% 1,000 ML IV SCH (05:58)
[2016-09-14 06:27] LABS: ADD SCAN DIFF NO
[2016-09-14 06:37] LABS: BASOPHIL # 0.1 10^3/ul (0.0-0.1); BASOPHILS % 0.8 % (0.0-2.0); EOSINOPHILS # 0.3 10^3/ul (0.0-0.5); EOSINOPHILS % 3.7 % (0.0-7.0); HEMATOCRIT 37.8 % (37.0-47.0); HEMOGLOBIN 12.5 g/dl (12.0-16.0); LYMPHOCYTES # 2.7 10^3/ul (0.8-2.9); LYMPHOCYTES % 35.6 % (15.0-51.0); MEAN CORPUSCULAR HEMOGLOBIN 30.7 pg (29.0-33.0); MEAN CORPUSCULAR HGB CONC 33.1 g/dl (32.0-37.0); MEAN CORPUSCULAR VOLUME 92.9 fl (82.0-101.0); MONOCYTE # 0.5 10^3/ul (0.3-0.9); MONOCYTES % 6.5 % (0.0-11.0); NEUTROPHILS % 52.3 % (39.0-77.0); PLATELET COUNT 309 10^3/UL (140-415); RED BLOOD COUNT 4.07 10^6/ul (4.20-5.40); RED CELL DISTRIBUTION WIDTH 12.2 % (11.5-14.5); WHITE BLOOD COUNT 7.6 10^3/ul (4.8-10.8)
[2016-09-14 06:54] LABS: POTASSIUM 4.3 mmol/L (3.5-5.1)
[2016-09-14 06:57] LABS: CREATININE 0.54 mg/dl (0.44-1.00)
[2016-09-14 06:58] LABS: CALCIUM 9.3 mg/dl (8.4-10.2)
[2016-09-14 07:23] VITALS: BP 123/70; RESP 18
[2016-09-14] MEDS: NEOMYC/POLYMYX/HC 10 ML OTIC SUSP LEFT EAR SCH (08:10)
[2016-09-14] MEDS: LEVALBUTEROL (NEB) 0.63 MG/3 ML AMP HHN SCH (09:08)
[2016-09-14] MEDS: ENOXAPARIN 40 MG/0.4 ML SYG SC SCH (09:14)
[2016-09-14] MEDS: INSULIN ASPART [NOVOLOG] 3 ML PEN SC SCH ×4 (09:15→12:20)
[2016-09-14] MEDS ORDERED: LEVO500T72 PO (11:25)
[2016-09-14] MEDS ORDERED: NPH10OT LEFT EAR (11:25)
[2016-09-14] MEDS ORDERED: IBUP-1542 PO (11:25)
[2016-09-14] MEDS ORDERED: ONDANSETRON 4 MG TAB PO PRN (12:30)
[2016-09-14] MEDS ORDERED: PANTOPRAZOLE (EC) 40 MG TAB PO ONE (12:30)
[2016-09-14] MEDS ORDERED: PANT40TA4 PO (12:41)
[2016-09-14] MEDS ORDERED: LEVA15HF6 INH (12:41)
[2016-09-14] MEDS ORDERED: NOVO3I SC (12:41)
--- NOTE | 2016-09-14 12:45 | DS ---
Date/Time of Note Date/Time of Note DATE: 09/14/16 TIME: 12:44 Discharge Summary Admission/Discharge Info Admit Date/Time Sep 11, 2016 at 17:58 Discharge Date/Time Hospital Course Assessment/Plan - Acute bronchitis. Continue Levaquin - Left otitis media. Continue Cortisporin eardrops. - Diabetes mellitus. Hemoglobin A1c 7.9. Continue NovoLog, according to patient patient is allergic to Lantus. Further recommendations based on clinical course. Plan of care discussed with Dr. Garcia. Home Meds Active Scripts Levalbuterol* (Xopenex* HFA) 15 Gm Inha, 1-2 PUFF INH Q6 Y for SHORTNESS OF BREATH, #1 EA Prov:JULIOCESAR JOSHUA 09/14/16 Pantoprazole* (Pantoprazole*) 40 Mg Tablet., 40 MG PO DAILY@06 for 30 Days Prov:JULIOCESAR JOSHUA 09/14/16 Insulin Aspart* (Novolog Insulin Pen*) 100 Unit/Ml Soln, 8 UNIT SC WITH MEALS for 30 Days Prov:JULIOCESAR JOSHUA 09/14/16 Ibuprofen* (Ibuprofen*) 600 Mg Tablet, 600 MG PO Q6 Y for FEVER, pain, #20 TAB Prov:JULIOCESAR JOSHUA 09/14/16 Levofloxacin* (Levaquin*) 500 Mg Tablet, 500 MG PO DAILY for 7 Days, TAB Prov:JULIOCESAR JOSHUA 09/14/16 Neomy Sulf/Polymyx B Sulf/Hc (Antibiotic Ear Suspension) 10 Ml Drops.susp, 4 DROP LEFT EAR TID for 5 Days Prov:JULIOCESAR JOSHUA 09/14/16 Reported Medications Insulin Human Regular (Novolin-R U-100) 100 Unit/Ml Soln, 15 UNITS SC BID, EA 09/11/16 Discontinued Scripts Pantoprazole* (Protonix*) 40 Mg Tablet., 40 MG PO DAILY, #20 TAB Prov:YULISSA ROCHA MD 07/22/16 Pending Labs Laboratory Tests Test 09/13/16 17:20 09/13/16 20:35 09/14/16 05:40 09/14/16 07:55 Bedside Glucose 129mg/dL (70-220) 164mg/dL (70-220) 180mg/dL (70-220) White Blood Count 7.610^3/ul (4.8-10.8) Red Blood Count 4.0710^6/ul (4.20-5.40) Hemoglobin 12.5g/dl (12.0-16.0) Hematocrit 37.8% (37.0-47.0) Mean Corpuscular Volume 92.9fl (82.0-101.0) Mean Corpuscular Hemoglobin 30.7pg (29.0-33.0) Mean Corpuscular Hemoglobin Concent 33.1g/dl (32.0-37.0) Red Cell Distribution Width 12.2% (11.5-14.5) Platelet Count 56242^3/UL (140-415) Mean Platelet Volume 10.0fl (7.4-10.4) Neutrophils % 52.3% (39.0-77.0) Lymphocytes % 35.6% (15.0-51.0) Monocytes % 6.5% (0.0-11.0) Eosinophils % 3.7% (0.0-7.0) Basophils % 0.8% (0.0-2.0) Nucleated Red Blood Cells % 0.0/100WBC (0.0-0.0) Neutrophils # 4.010^3/ul (1.6-7.5) Lymphocytes # 2.710^3/ul (0.8-2.9) Monocytes # 0.510^3/ul (0.3-0.9) Eosinophils # 0.310^3/ul (0.0-0.5) Basophils # 0.110^3/ul (0.0-0.1) Nucleated Red Blood Cells # 0.010^3/ul (0.0-0.0) Sodium Level 139mmol/L (135-144) Potassium Level 4.3mmol/L (3.5-5.1) Chloride Level 101mmol/L (97-110) Carbon Dioxide Level 27mmol/L (21-31) Anion Gap 15 (8-16) Blood Urea Nitrogen 15mg/dl (7-20) Creatinine 0.54mg/dl (0.44-1.00) Glucose Level 177mg/dl (70-220) Calcium Level 9.3mg/dl (8.4-10.2) Test 09/14/16 11:53 Bedside Glucose 264mg/dL (70-220) JULIOCESAR JOSHUA Sep 14, 2016 12:45
--- NOTE | 2016-09-14 13:29 | PDOCDIS ---
Discharge Instructions CONDITION Patient Condition: Stable HOME CARE INSTRUCTIONS: Diet Instructions: Low Fat /CholesterolSpecial Diet: 1800 cla, 2 gm Na, low cholesterol ACTIVITY: Activity Restrictions: Slowly Increase Activity Rest between Activity Avoid heavy lifting Do not operate Machinery Do not operate Power Tool Avoid Heavy Housework Bathing Restrictions: Sponge Bath FOLLOW UP/APPOINTMENTS Appointments fu with primary MD x 1 week Call 911 or go to the nearest hosital if symptoms get worse. patient verbalized understanding dc instructions JULIOCESAR JOSHUA Sep 14, 2016 13:29
--- NOTE | 2016-09-14 13:29 | DS ---
Date/Time of Note Date/Time of Note DATE: 09/14/16 TIME: 13:29 Discharge Summary Admission/Discharge Info Admit Date/Time Sep 11, 2016 at 17:58 Discharge Date/Time Hospital Course Assessment/Plan - Acute bronchitis. Continue Levaquin - Left otitis media. Continue Cortisporin eardrops. - Diabetes mellitus. Hemoglobin A1c 7.9. Continue NovoLog, according to patient patient is allergic to Lantus. Further recommendations based on clinical course. Plan of care discussed with Dr. Garcia. Home Meds Active Scripts Levalbuterol* (Xopenex* HFA) 15 Gm Inha, 1-2 PUFF INH Q6 Y for SHORTNESS OF BREATH, #1 EA Prov:JULIOCESAR JOSHUA 09/14/16 Pantoprazole* (Pantoprazole*) 40 Mg Tablet., 40 MG PO DAILY@06 for 30 Days Prov:JULIOCESAR JOSHUA 09/14/16 Insulin Aspart* (Novolog Insulin Pen*) 100 Unit/Ml Soln, 8 UNIT SC WITH MEALS for 30 Days Prov:JULIOCESAR JSOHUA 09/14/16 Ibuprofen* (Ibuprofen*) 600 Mg Tablet, 600 MG PO Q6 Y for FEVER, pain, #20 TAB Prov:JULIOCESAR JOSHUA 09/14/16 Levofloxacin* (Levaquin*) 500 Mg Tablet, 500 MG PO DAILY for 7 Days, TAB Prov:JULIOCESAR JOSHUA 09/14/16 Neomy Sulf/Polymyx B Sulf/Hc (Antibiotic Ear Suspension) 10 Ml Drops.susp, 4 DROP LEFT EAR TID for 5 Days Prov:JULIOCESAR JOSHUA 09/14/16 Reported Medications Insulin Human Regular (Novolin-R U-100) 100 Unit/Ml Soln, 15 UNITS SC BID, EA 09/11/16 Discontinued Scripts Pantoprazole* (Protonix*) 40 Mg Tablet., 40 MG PO DAILY, #20 TAB Prov:YULISSA ROCHA MD 07/22/16 Pending Labs Laboratory Tests Test 09/13/16 17:20 09/13/16 20:35 09/14/16 05:40 09/14/16 07:55 Bedside Glucose 129mg/dL (70-220) 164mg/dL (70-220) 180mg/dL (70-220) White Blood Count 7.610^3/ul (4.8-10.8) Red Blood Count 4.0710^6/ul (4.20-5.40) Hemoglobin 12.5g/dl (12.0-16.0) Hematocrit 37.8% (37.0-47.0) Mean Corpuscular Volume 92.9fl (82.0-101.0) Mean Corpuscular Hemoglobin 30.7pg (29.0-33.0) Mean Corpuscular Hemoglobin Concent 33.1g/dl (32.0-37.0) Red Cell Distribution Width 12.2% (11.5-14.5) Platelet Count 25963^3/UL (140-415) Mean Platelet Volume 10.0fl (7.4-10.4) Neutrophils % 52.3% (39.0-77.0) Lymphocytes % 35.6% (15.0-51.0) Monocytes % 6.5% (0.0-11.0) Eosinophils % 3.7% (0.0-7.0) Basophils % 0.8% (0.0-2.0) Nucleated Red Blood Cells % 0.0/100WBC (0.0-0.0) Neutrophils # 4.010^3/ul (1.6-7.5) Lymphocytes # 2.710^3/ul (0.8-2.9) Monocytes # 0.510^3/ul (0.3-0.9) Eosinophils # 0.310^3/ul (0.0-0.5) Basophils # 0.110^3/ul (0.0-0.1) Nucleated Red Blood Cells # 0.010^3/ul (0.0-0.0) Sodium Level 139mmol/L (135-144) Potassium Level 4.3mmol/L (3.5-5.1) Chloride Level 101mmol/L (97-110) Carbon Dioxide Level 27mmol/L (21-31) Anion Gap 15 (8-16) Blood Urea Nitrogen 15mg/dl (7-20) Creatinine 0.54mg/dl (0.44-1.00) Glucose Level 177mg/dl (70-220) Calcium Level 9.3mg/dl (8.4-10.2) Test 09/14/16 11:53 Bedside Glucose 264mg/dL (70-220) JULIOCESAR JOSHUA Sep 14, 2016 13:29
[2016-09-15] MEDS ORDERED: PANTOPRAZOLE (EC) 40 MG TAB PO SCH (06:00)
== END 2016-09-14 15:15 | disposition home or self-care (01) | DRG 153 ==
LOC: E/R 07:07 → INTOOBSV 10:59 → MS2 10:59 → OBSVTOIN 17:58 → MS2 09-12 20:20
PROVIDERS: ADMIT Internal Medicine; ATTEND Internal Medicine
DX: H66.92 Otitis media, unspecified, left ear (principal); E11.9 Type 2 diabetes mellitus without complications; J20.9 Acute bronchitis, unspecified; Z79.4 Long term (current) use of insulin
CPT/HCPCS: 36415; 71010; 80048; 80053; 81001; 81003; 82962; 83036; 83605; 83690; 84484; 85025; 85610; 85730; 87040; 87070; 87086; 87400; 93005; 94640; 94664; 96365; 96367; 96375; G0378; J0456; J0696; J1650; J1815; J1885; J1956; J7030

== ENCOUNTER 2018-12-23 13:55 | Emergency (ER) | payer MEDICARE, OTHER ==
[~2018-12-23] VITALS: Ht 152.4 cm; Wt 62.3 kg
[~2018-12-23 13:55] MED LIST changes: +FAMO-96 PO; +IBUP-1542 PO; +LEVA15HF6 INH; +LEVO500T48 PO; +METO10TA92 PO; +NOVO3I SC; +NPH10OT LEFT EAR; -PANT40TA3 PO; +PANT40TA4 PO
[2018-12-23 14:19] VITALS: Ht 152.4 cm; Wt 62.3 kg
[2018-12-23] MEDS ORDERED: LIDOCAINE/MYLANTA 40 ML BTL PO STA (19:05)
--- NOTE | 2018-12-23 19:15 | ERD ---
ER Documentation Chief Complaint Chief Complaint intermittent mid epigastric pain with n/v x 3 weeks, hx eye nerve damage HPI 63-year-old female with a history of diabetes presenting with epigastric pain with nausea and vomiting that started early this morning around 3 AM. She complains of a burning sensation in her epigastrium with no alleviating or exacerbating factors. Pain is constant, 5 out of 10. Vomiting was nonbloody. She also complains of right eye problems for the past 3 weeks. She has been seen at [facility] multiple times for this. She states that there was nerve damage to her right eye spontaneously which is what she was told. It seems the patient was likely diagnosed with a cranial nerve palsy due to her diabetes. Her symptoms have not improved. She was last seen 1 week ago at the hospital for this by an target man. There are no new complaints with regard to her eye. ROS All systems reviewed and are negative except as per history of present illness. Medications Home Meds Active Scripts Metoclopramide* (Reglan*) 10 Mg Tablet, 10 MG PO Q6 PRN for NAUSEA AND/OR VOMITING, #10 TAB Prov:TAMY DESHPANDE MD 12/23/18 Famotidine* (Pepcid*) 20 Mg Tablet, 20 MG PO BID for 7 Days, TAB Prov:TAMY DESHPANDE MD 12/23/18 Levalbuterol* (Xopenex* HFA) 15 Gm Inha, 1-2 PUFF INH Q6 PRN for SHORTNESS OF BREATH, #1 EA Prov:JULIOCESAR JOSHUA 09/14/16 Pantoprazole* (Pantoprazole*) 40 Mg Tablet.dr, 40 MG PO DAILY@06 for 30 Days Prov:JULIOCESAR JOSHUA 09/14/16 Insulin Aspart* (Novolog Insulin Pen*) 100 Unit/Ml Soln, 8 UNIT SC WITH MEALS for 30 Days Prov:JULIOCESAR JOSHUA 09/14/16 Ibuprofen* (Ibuprofen*) 600 Mg Tablet, 600 MG PO Q6 PRN for FEVER, pain, #20 TAB Prov:JULIOCESAR JOSHUA 09/14/16 Levofloxacin* (Levaquin*) 500 Mg Tablet, 500 MG PO DAILY for 7 Days, TAB Prov:JULIOCESAR JOSHUA 09/14/16 Neomy Sulf/Polymyx B Sulf/Hc (Antibiotic Ear Suspension) 10 Ml Drops.susp, 4 DROP LEFT EAR TID for 5 Days Prov:JULIOCESAR JOSHUA 09/14/16 Allergies Allergies: Coded Allergies: Penicillins (Verified Allergy, Unknown, RASH STOMACH ACHE, 09/11/16) insulin glargine (Verified Allergy, Unknown, rash, 09/12/16) itching PMhx/Soc History of Surgery: No Anesthesia Reaction: No Hx Neurological Disorder: No Hx Respiratory Disorders: No Hx Cardiac Disorders: No Hx Psychiatric Problems: No Hx Miscellaneous Medical Probl: Yes (GERD, diabetes) Hx Alcohol Use: No Hx Substance Use: No Hx Tobacco Use: No Smoking Status: Never smoker FmHx Family History: diabetes Physical Exam Vitals Vital Signs Date Temp Pulse Resp B/P (MAP) Pulse Ox O2 O2 Flow FiO2 Time Delivery Rate 12/23/18 98.0 86 15 152/83 97 Room Air 19:45 (106) 12/23/18 97.8 94 15 140/83 98 Room Air 18:35 (102) 12/23/18 98.6 104 16 157/92 96 14:19 (113) Physical Exam Const: No acute distress Head: Atraumatic Eyes: Normal Conjunctiva. Right lid is not spontaneously open. The right pupil is midsize, not reactive to light, resting in down and lateral position. Evidence of cranial nerve III palsy. Lateral rectus function intact. Left pupil with EOMI, pupil reactive to light ENT: Normal External Ears, Nose and Mouth. Neck: Full range of motion. No meningismus. Resp: Clear to auscultation bilaterally Cardio: Regular rate and rhythm, no murmurs Abd: Soft, non tender, non distended. Normal bowel sounds Skin: No petechiae or rashes Back: No midline or flank tenderness Ext: No cyanosis, or edema Neur: Awake and alert, cranial nerve III palsy of the right eye. All other cranial nerves intact. Strength and sensations intact in all 4 extremities. No facial asymmetry otherwise and normal speech. Psych: Normal Mood and Affect Result Diagram: 12/23/18 1626 12/23/18 1626 Results 24 hrs Laboratory Tests Test 12/23/18 16:26 White Blood Count 9.2 10^3/ul Red Blood Count 4.65 10^6/ul Hemoglobin 14.4 g/dl Hematocrit 42.0 % Mean Corpuscular Volume 90.3 fl Mean Corpuscular Hemoglobin 31.0 pg Mean Corpuscular Hemoglobin Concent 34.3 g/dl Red Cell Distribution Width 12.8 % Platelet Count 224 10^3/UL Mean Platelet Volume 10.9 fl Immature Granulocytes % 0.300 % Neutrophils % 64.7 % Lymphocytes % 27.7 % Monocytes % 4.9 % Eosinophils % 1.7 % Basophils % 0.7 % Nucleated Red Blood Cells % 0.0 /100WBC Immature Granulocytes # 0.030 10^3/ul Neutrophils # 5.9 10^3/ul Lymphocytes # 2.5 10^3/ul Monocytes # 0.5 10^3/ul Eosinophils # 0.2 10^3/ul Basophils # 0.1 10^3/ul Nucleated Red Blood Cells # 0.0 10^3/ul Urine Color YELLOW Urine Clarity CLEAR Urine pH 7.0 Urine Specific [place] 1.014 Urine Ketones NEGATIVE mg/dL Urine Nitrite NEGATIVE mg/dL Urine Bilirubin NEGATIVE mg/dL Urine Urobilinogen NEGATIVE mg/dL Urine Leukocyte Esterase NEGATIVE Mady/ul Urine Hemoglobin NEGATIVE mg/dL Urine Glucose NEGATIVE mg/dL Urine Total Protein NEGATIVE mg/dl Sodium Level 138 mmol/L Potassium Level 4.8 mmol/L Chloride Level 100 mmol/L Carbon Dioxide Level 29 mmol/L Anion Gap 9 Blood Urea Nitrogen 9 mg/dl Creatinine 0.52 mg/dl Est Glomerular Filtrat Rate mL/min > 60 mL/min Glucose Level 266 mg/dl Calcium Level 9.9 mg/dl Total Bilirubin 0.6 mg/dl Direct Bilirubin 0.00 mg/dl Indirect Bilirubin 0.6 mg/dl Aspartate Amino Transf (AST/SGOT) 20 IU/L Alanine Aminotransferase (ALT/SGPT) 20 IU/L Alkaline Phosphatase 107 IU/L Total Protein 7.4 g/dl Albumin 4.2 g/dl Globulin 3.20 g/dl Albumin/Globulin Ratio 1.31 Lipase 65 U/L Current Medications Medications Dose Sig/Elly Start Time Status Last (Trade) Ordered Route PRN Stop Time Admin Dose Reason Admin Famotidine 20 mg ONCE ONCE 12/23/18 DC 12/23/18 (Pepcid) PO 19:30 19:19 12/23/18 19:31 10 mg ONCE ONCE 12/23/18 DC 12/23/18 Metoclopramid PO 19:30 19:19 e HCl 7/31/19 19:31 (Reglan) 40 ml ONCE STAT 12/23/18 DC 12/23/18 Miscellaneous PO 19:05 19:19 Medication 12/23/18 19:06 (Gi Cocktail (2)) Procedures/MDM EMERGENT LABS AND DIAGNOSTIC STUDIES: Lab Results above were reviewed and interpreted by me. CBC: no anemia or evidence of infection CMP: Hyperglycemic. No evidence of clinically significant electrolyte abnormality, acidosis, renal failure, hypoglycemia, liver disease, or biliary obstruction Lipase: no evidence of pancreatitis 12-lead EKG was interpreted by Adrian Deshpande MD: Normal Sinus Rhythm Normal axis Normal intervals No acute ST or T wave changes suggestive of acute ischemia or STEMI. Initial Nursing notes reviewed. Previous Medical Records requested via the Electronic Health Record. EMERGENCY DEPARTMENT COURSE / MEDICAL DECISION MAKING: Patient presenting with epigastric pain, likely secondary to gastritis. She was given a GI cocktail and Pepcid. Low suspicion for acute surgical abdomen. 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 Recommended follow-up with her primary care doctor for this. Return precautions discussed. Discharged in a stable condition. Patient's blood pressure was elevated (>120/80) but appears stable without evidence of hypertensive emergency or urgency. The patient was counseled about the risks of hypertension and urged to pursue outpatient monitoring and therapy within a week with their primary care physician. Departure Diagnosis: Primary Impression: Abdominal pain Abdominal location: epigastric Qualified Codes: R10.13 - Epigastric pain Additional Impressions: Gastritis Gastritis type: unspecified gastritis Chronicity: acute Gastritis bleeding: presence of bleeding unspecified Qualified Codes: K29.00 - Acute gastritis without bleeding Cranial nerve III palsy, total Laterality: right Qualified Codes: H49.01 - Third [oculomotor] nerve palsy, right eye Condition: Stable Patient Instructions: Gastritis (Adult) Additional Instructions: Mushtaq trina ann con osorio medico primario en 1-2 [place]. TAMY DESHPANDE MD Dec 23, 2018 19:15
[2018-12-23] MEDS ORDERED: METOCLOPRAMIDE 10 MG TAB PO ONE (19:30)
[2018-12-23] MEDS ORDERED: FAMOTIDINE 20 MG TAB PO ONE (19:30)
[2018-12-23 19:45] VITALS: BP 152/83; PULSE 86; RESP 15
== END 2018-12-23 19:45 | disposition home or self-care (01) ==
LOC: E/R 13:55
DX: K29.00 Acute gastritis without bleeding (principal); H49.01 Third [oculomotor] nerve palsy, right eye
CPT/HCPCS: 80053; 81003; 83690; 85025; 93005